=== PATIENT | female | born 1950 | race Hispanic/Latino ===

== ENCOUNTER → 2018-04-30 | Day surgery (SDC) | payer MEDICARE, BC ==
[2018-04-27 11:33] LABS: BASOPHILS % 0.3 % (0.0-1.0); EOSINOPHILS # (AUTO) 0.1 (0.0-0.4); EOSINOPHILS % 1.7 % (0.0-6.0); HEMATOCRIT 40.6 % (34.2-44.1); HEMOGLOBIN 13.6 g/dL (12.0-16.0); LYMPHOCYTES # (AUTO) 2.2 (1.0-3.2); LYMPHOCYTES % 31.8 % (18.0-39.1); MEAN CORPUSCULAR HGB CONC 33.5 g/dL (31-35); MEAN CORPUSCULAR VOLUME 83.5 fL (81-99); MONOCYTES # (AUTO) 0.4 (0.2-0.8); MONOCYTES % 5.4 % (4.4-11.3); NEUTROPHILS # (AUTO) 4.3 (2.1-6.9); NEUTROPHILS % 60.4 % (38.7-80.0); PLATELET COUNT 166 x10e3/uL (140-360); RED BLOOD COUNT 4.86 x10e6/uL (3.6-5.1); RED CELL DISTRIBUTION WIDTH 14.6 % (11.7-14.4)
[~2018-04-30] MED LIST: AMLODIPINE; CALCIUM; CARVEDILOL3.125 MG PO; HUMALOG100 UNIT/1; HYDROCHLOROTHIA25 MG; KETAMINE HCL INJ 50 MG/ML 10 ML VIAL ONE; LOVASTATIN10 MG; METROGEL60 GM; MIDAZOLAM HCL 2 MG/2 ML VIAL ONE; ONE DAILY MULT1 EAC1; PROPOFOL IV EMULSION 10 MG/ML 50 ML VIAL ONE; TOUJEO; TYLENOL
[2018-04-30 08:00] VITALS: BP 125/72
== END | disposition home or self-care (01) ==
LOC: OR 05:20
PROVIDERS: ATTEND Internal Medicine Gastroenterology
DX: Z12.11 Encounter for screening for malignant neoplasm of colon (principal); I10 Essential (primary) hypertension; Z71.3 Dietary counseling and surveillance; E11.9 Type 2 diabetes mellitus without complications; E66.01 Morbid (severe) obesity due to excess calories; K64.8 Other hemorrhoids; G57.90 Unspecified mononeuropathy of unspecified lower limb; M17.0 Bilateral primary osteoarthritis of knee; G47.33 Obstructive sleep apnea (adult) (pediatric); E78.5 Hyperlipidemia, unspecified; R16.0 Hepatomegaly, not elsewhere classified; R00.1 Bradycardia, unspecified; Z88.2 Allergy status to sulfonamides; Z91.040 Latex allergy status; Z01.810 Encounter for preprocedural cardiovascular examination; Z01.812 Encounter for preprocedural laboratory examination; Z79.4 Long term (current) use of insulin; Z68.41 Body mass index [BMI] 40.0-44.9, adult; Z87.891 Personal history of nicotine dependence
CPT/HCPCS: 36415 ×2; 82948; 85025; 93005; G0121; J2250; J2704; 45378